=== PATIENT | male | born 1985 | race Caucasian/White ===

== ENCOUNTER 2018-10-07 12:59 | Emergency (ER) | payer OTHER ==
[~2018-10-07] VITALS: Ht 160 cm; Wt 86.2 kg
[2018-10-07 13:13] VITALS: BP_SYST 143
--- NOTE | 2018-10-07 13:15 | NUR ---
Pt refused blood alcohol at this time , campus police officer notified, notified, Pt left ER accompanied by campus police officer.
== END 2018-10-07 13:15 ==
LOC: SED 12:59
DX: Z00.00 Encounter for general adult medical examination without abnormal findings (principal); Z53.21 Procedure and treatment not carried out due to patient leaving prior to being seen by health care provider